=== PATIENT | female | born 1975 | race Caucasian/White ===

== ENCOUNTER 2018-05-28 14:36 | Emergency (ER) | payer OTHER ==
[2018-05-28] MEDS ORDERED: MAG HYDROX/AL HYDROX/SIMETH 30 ML, HYOSCYAMINE ELIXIR 10 ML, CIMETIDINE HCL 300 MG, LID... PO STA ×4 (15:09)
[2018-05-28 15:34] LABS: Basophils % (A) 0 %; Eosinophils # (A) 0.1 k/uL (0-0.7); Eosinophils % (A) 2 %; HCT 38.1 % (34.0-46.0); HGB 12.4 gm/dL (11.4-16.0); Lymphocytes # (A) 1.4 k/uL (1.0-4.8); Lymphocytes % (A) 19 %; MCH 29.6 pg (25.0-35.0); MCHC 32.5 g/dL (31.0-37.0); MCV 91.1 fL (80.0-100.0); Mean Platelet Volume 7.8; Monocytes # (A) 0.2 k/uL (0-1.0); Monocytes % (A) 3 %; Neutrophils # (A) 5.7 k/uL (1.3-7.7); Neutrophils % (A) 75 %; Platelet Count 284 k/uL (150-450); RBC 4.18 m/uL (3.80-5.40); RDW 12.4 % (11.5-15.5); WBC 7.5 k/uL (3.8-10.6)
--- NOTE | 2018-05-28 15:39 | ED ---
General Adult HPI - General Chief complaint: Chest Pain Stated complaint: Chest pain Time Seen by Provider: 05/28/18 14:48 Source: patient, RN notes reviewed, old records reviewed Mode of arrival: wheelchair Limitations: no limitations - History of Present Illness Initial comments: 42-year-old female presents with substernal chest pain. Pain began approximately one half hours prior to arrival. She developed this pain while at rest, initially thought this was indigestion however was not relieved with indigestion medication. Describes the pain as sharp and central chest pain. No dyspnea. No radiating symptoms. No diaphoresis. Patient did have some nausea with no vomiting. Denies any preceding symptoms. No fever or chills. No cough. No history of CAD, patient is a nonsmoker. No history of hypertension or diabetes. - Related Data Previous Rx's Medication Instructions Recorded Omeprazole [PriLOSEC] 20 mg PO AC-BID #60 cap 05/28/18 Allergies Allergy/AdvReac Type Severity Reaction Status Date / Time No Known Allergies Allergy Verified 05/28/18 15:21 Review of Systems ROS Statement: Those systems with pertinent positive or pertinent negative responses have been documented in the HPI. ROS Other: All systems not noted in ROS Statement are negative. Past Medical History Past Medical History: No Reported History History of Any Multi-Drug Resistant Organisms: None Reported Past Surgical History: Cholecystectomy Past Psychological History: No Psychological Hx Reported Smoking Status: Former smoker Past Alcohol Use History: None Reported Past Drug Use History: None Reported General Exam Limitations: no limitations General appearance: alert, in no apparent distress Head exam: Present: atraumatic, normocephalic Eye exam: Present: normal appearance, PERRL, EOMI ENT exam: Present: normal exam Neck exam: Present: normal inspection. Absent: tenderness, meningismus Respiratory exam: Present: normal lung sounds bilaterally. Absent: respiratory distress, wheezes Cardiovascular Exam: Present: regular rate, normal rhythm GI/Abdominal exam: Present: soft. Absent: distended, tenderness, guarding Extremities exam: Present: normal inspection, normal capillary refill. Absent: pedal edema, calf tenderness Neurological exam: Present: alert, oriented X3, CN II-XII intact. Absent: motor sensory deficit Psychiatric exam: Present: normal affect, normal mood Skin exam: Present: warm, dry, intact. Absent: cyanosis, diaphoretic Course Vital Signs 05/28/18 05/28/18 05/28/18 14:39 15:47 17:19 Temperature 98.4 F Pulse Rate 85 92 69 Respiratory 20 17 18 Rate Blood Pressure 145/82 147/73 133/77 O2 Sat by Pulse 98 97 98 Oximetry EKG Findings - EKG Comments: EKG Findings:: EKG: Normal sinus rhythm, rate of 87, IN interval 138, QRS duration 80, QTc 450, there is no ST segment elevation or depression, T waves are upright. Nonischemic EKG. Medical Decision Making - Medical Decision Making 42-year-old female presenting with central chest pain. Pain is nonradiating. There is some nausea. Patient initially thought this was reflux related. EKG obtained in emergency Department is nonischemic. Chest x-ray obtained, negative for acute cardiopulmonary process. CBC is unremarkable. Troponin is negative. D-dimer is mildly elevated 0.55, for this reason CT angiography is obtained, negative for PE or acute process. On reevaluation, patient's symptoms are improved with GI cocktail. She will be discharged with outpatient follow-up. She will return with worsening or changing symptoms. Heart score:1 - Lab Data Result diagrams: 05/28/18 15:00 05/28/18 15:00 Lab Results 05/28/18 05/28/18 05/28/18 Range/Units 15:00 15:00 15:00 WBC 7.5 (3.8-10.6) k/uL RBC 4.18 (3.80-5.40) m/uL Hgb 12.4 (11.4-16.0) gm/dL Hct 38.1 (34.0-46.0) % MCV 91.1 (80.0-100.0) fL MCH 29.6 (25.0-35.0) pg MCHC 32.5 (31.0-37.0) g/dL RDW 12.4 (11.5-15.5) % Plt Count 284 (150-450) k/uL Neutrophils % 75 % Lymphocytes % 19 % Monocytes % 3 % Eosinophils % 2 % Basophils % 0 % Neutrophils # 5.7 (1.3-7.7) k/uL Lymphocytes # 1.4 (1.0-4.8) k/uL Monocytes # 0.2 (0-1.0) k/uL Eosinophils # 0.1 (0-0.7) k/uL Basophils # 0.0 (0-0.2) k/uL PT (9.0-12.0) sec INR (<1.2) APTT (22.0-30.0) sec D-Dimer (<0.60) mg/L FEU Sodium 140 (137-145) mmol/L Potassium 4.2 (3.5-5.1) mmol/L Chloride 106 (98-107) mmol/L Carbon Dioxide 22 (22-30) mmol/L Anion Gap 12 mmol/L BUN 10 (7-17) mg/dL Creatinine 0.62 (0.52-1.04) mg/dL Est GFR (CKD-EPI)AfAm >90 (>60 ml/min/1.73 sqM) Est GFR (CKD-EPI)NonAf >90 (>60 ml/min/1.73 sqM) Glucose 140 H (74-99) mg/dL Calcium 9.0 (8.4-10.2) mg/dL Magnesium 1.9 (1.6-2.3) mg/dL Total Bilirubin 0.6 (0.2-1.3) mg/dL AST 74 H (14-36) U/L ALT 48 (9-52) U/L Alkaline Phosphatase 107 (38-126) U/L Total Creatine Kinase 41 (30-135) U/L CK-MB (CK-2) 0.4 (0.0-2.4) ng/mL CK-MB (CK-2) Rel Index 1.0 Troponin I <0.012 (0.000-0.034) ng/mL Total Protein 7.6 (6.3-8.2) g/dL Albumin 4.2 (3.5-5.0) g/dL Lipase 66 (23-300) U/L 05/28/18 Range/Units 15:00 WBC (3.8-10.6) k/uL RBC (3.80-5.40) m/uL Hgb (11.4-16.0) gm/dL Hct (34.0-46.0) % MCV (80.0-100.0) fL MCH (25.0-35.0) pg MCHC (31.0-37.0) g/dL RDW (11.5-15.5) % Plt Count (150-450) k/uL Neutrophils % % Lymphocytes % % Monocytes % % Eosinophils % % Basophils % % Neutrophils # (1.3-7.7) k/uL Lymphocytes # (1.0-4.8) k/uL Monocytes # (0-1.0) k/uL Eosinophils # (0-0.7) k/uL Basophils # (0-0.2) k/uL PT 9.7 (9.0-12.0) sec INR 1.0 (<1.2) APTT 24.9 (22.0-30.0) sec D-Dimer 0.55 (<0.60) mg/L FEU Sodium (137-145) mmol/L Potassium (3.5-5.1) mmol/L Chloride (98-107) mmol/L Carbon Dioxide (22-30) mmol/L Anion Gap mmol/L BUN (7-17) mg/dL Creatinine (0.52-1.04) mg/dL Est GFR (CKD-EPI)AfAm (>60 ml/min/1.73 sqM) Est GFR (CKD-EPI)NonAf (>60 ml/min/1.73 sqM) Glucose (74-99) mg/dL Calcium (8.4-10.2) mg/dL Magnesium (1.6-2.3) mg/dL Total Bilirubin (0.2-1.3) mg/dL AST (14-36) U/L ALT (9-52) U/L Alkaline Phosphatase (38-126) U/L Total Creatine Kinase (30-135) U/L CK-MB (CK-2) (0.0-2.4) ng/mL CK-MB (CK-2) Rel Index Troponin I (0.000-0.034) ng/mL Total Protein (6.3-8.2) g/dL Albumin (3.5-5.0) g/dL Lipase (23-300) U/L Disposition Clinical Impression: Gastroesophageal reflux disease, Chest pain Disposition: HOME SELF-CARE Condition: Good Instructions: Chest Pain (ED), Gastroesophageal Reflux Disease (ED) Prescriptions: Omeprazole [PriLOSEC] 20 mg PO AC-BID #60 cap Is patient prescribed a controlled substance at d/c from ED?: No Referrals: None,Stated [Primary Care Provider] - 1-2 days Carlie Lopez MD [STAFF PHYSICIAN] - 1-2 days Time of Disposition: 16:52
--- NOTE | 2018-05-28 15:43 | XR ---
EXAMINATION TYPE: XR chest 2V DATE OF EXAM: 05/28/2018 COMPARISON: NONE HISTORY: Chest pain TECHNIQUE: Frontal and lateral views of the chest are obtained. FINDINGS: There is no focal air space opacity, pleural effusion, or pneumothorax seen. The cardiac silhouette size is within normal limits. The osseous structures are intact. IMPRESSION: No acute cardiopulmonary process.
[2018-05-28 15:46] LABS: ALT 48 U/L (9-52); AST 74 U/L (14-36); Albumin 4.2 g/dL (3.5-5.0); Alkaline Phosphatase 107 U/L (38-126); Anion Gap 12 mmol/L; Blood Urea Nitrogen 10 mg/dL (7-17); Carbon Dioxide 22 mmol/L (22-30); Chloride 106 mmol/L (98-107); Glucose 140 mg/dL (74-99); Lipase 66 U/L (23-300); Magnesium 1.9 mg/dL (1.6-2.3); Potassium 4.2 mmol/L (3.5-5.1); Sodium 140 mmol/L (137-145); Total Bilirubin 0.6 mg/dL (0.2-1.3); Total Protein 7.6 g/dL (6.3-8.2)
[2018-05-28 15:55] LABS: Creatine Kinase 41 U/L (30-135)
[2018-05-28 15:56] LABS: D-Dimer 0.55 mg/L FEU (<0.60); Partial Thromboplastin Time 24.9 sec (22.0-30.0); Prothrombin Time 9.7 sec (9.0-12.0)
[2018-05-28 16:08] LABS: Creatine Kinase MB 0.4 ng/mL (0.0-2.4); Troponin I <0.012 ng/mL (0.000-0.034)
--- NOTE | 2018-05-28 17:19 | CT ---
EXAMINATION TYPE: CT angio chest DATE OF EXAM: 05/28/2018 COMPARISON: NONE HISTORY: Mid chest pain today. CT DLP: 482.8 mGycm. Automated Exposure Control for Dose Reduction was Utilized. CONTRAST: CTA scan of the thorax is performed with IV Contrast, patient injected with 61 mL of Isovue 370, pulm onary embolism protocol. MIP Images are created on CT scanner and reviewed. FINDINGS: LUNGS: The lungs are grossly clear, there is no concerning parenchymal mass or nodule identified. T here is no pleural effusion or pneumothorax seen. The tracheobronchial tree is patent. MEDIASTINUM: There is satisfactory enhancement of the pulmonary artery and its branches, there is no CT evidence for pulmonary embolism. There are no greater than 1 cm hilar or mediastinal lymph nodes. No cardiomegaly or pericardial effusion is seen. Probable residual thymic tissue is seen in the hart perior anterior mediastinum. OTHER: Cholecystectomy is noted within the gallbladder fossa. IMPRESSION: 1. No evidence of pulmonary embolism. 2. No focal consolidation, pleural effusion or pneumothorax.
[2018-05-28 17:20] VITALS: BP 133/77; PULSE 69; RESP 18
[2018-05-28 17:34] VITALS: TEMP 98.1
== END 2018-05-28 17:32 | disposition home or self-care (01) ==
LOC: EC 14:36
DX: K21.9 Gastro-esophageal reflux disease without esophagitis (principal); R79.1 Abnormal coagulation profile; Z87.891 Personal history of nicotine dependence; Z90.49 Acquired absence of other specified parts of digestive tract
CPT/HCPCS: 36415; 93005; 85379; 80053; 82550; 82553; 83690; 83735; 84484; 85025; 85610; 85730; 71046; 71275; 99285; Q9967

== ENCOUNTER → 2018-09-29 | Outpatient (CLI) | payer OTHER ==
--- NOTE | 2018-09-29 10:30 | FL ---
EXAMINATION TYPE: FL UGI DATE OF EXAM: 09/29/2018 COMPARISON: CTA chest May 28, 2018 HISTORY: Abdominal pain and stomach ulcer per order. Epigastric pain per patient. Some relief with re flux medication. TECHNIQUE: A double contrast UGI study is performed. Total of 73 seconds of fluoroscopic time was ut ilized during procedure. 39 spot images are saved to PACS. FINDINGS: Doorperson image of the abdomen shows overall nonobstructive bowel gas pattern. Cholecystectomy clips are redemonstrated. The esophagus shows normal motility and emptying into the stomach. No evidence of hiatal hernia or s tricture noted. The stomach shows normal distensibility, peristalsis, and mucosal folds. No evidence of any mass or focal ulcer disease. Several episodes of gastroesophageal reflux into distal one third and one half o f the esophagus were seen during real-time performance of study. The duodenal bulb, sweep, and proximal small bowel loops are unremarkable. IMPRESSION: Confirmation of gastroesophageal reflux. No focal gastric ulcer identified.
== END | disposition home or self-care (01) ==
LOC: RADFLWHC 08:45
PROVIDERS: ATTEND Family Medicine
DX: K21.9 Gastro-esophageal reflux disease without esophagitis (principal)
CPT/HCPCS: 74240

== ENCOUNTER 2018-11-11 01:21 | Emergency (ER) | payer OTHER ==
[2018-11-11] MEDS ORDERED: MAG HYDROX/AL HYDROX/SIMETH 30 ML, HYOSCYAMINE ELIXIR 10 ML, CIMETIDINE HCL 300 MG, LID... PO STA ×4 (01:45)
[2018-11-11] MEDS ORDERED: ASPIRIN 81 MG PO STA (01:45)
[2018-11-11] MEDS ORDERED: MORPHINE SULFATE 4 MG/ML SYRINGE IV STA (01:45)
[2018-11-11] MEDS ORDERED: SODIUM CHLORIDE 0.9% 500 ML 500 ML IV STA (01:45)
--- NOTE | 2018-11-11 01:57 | ED ---
General Adult HPI - General Chief complaint: Chest Pain Stated complaint: chest pain Time Seen by Provider: 11/11/18 01:38 Source: patient, RN notes reviewed Mode of arrival: ambulatory Limitations: no limitations - History of Present Illness Initial comments: 43-year-old female with a past medical history of GERD and cholecystectomy presents to the emergency department for a chief complaint of chest and epigastric pain times 7 hours. Patient states the pain is gradually worsening. She describes the pain as a sharp stabbing pain in the chest and epigastric area. Patient denies any radiating pain to the arms, back, or jaw. She does admit to mild shortness of breath with this pain. Patient states she has not had this type of pain before. He shouldn't states to nausea and vomiting for the past as well Patient denies history of hypertension, hyperlipidemia, smoking. Patient did have an upper GI series 1.5 months ago, no evidence of gastric ulcer but GERD present. Patient has no other complaints at this time including fever, headache, visual changes. - Related Data Previous Rx's Medication Instructions Recorded Omeprazole [PriLOSEC] 20 mg PO AC-BID #60 cap 05/28/18 Allergies Allergy/AdvReac Type Severity Reaction Status Date / Time No Known Allergies Allergy Verified 11/11/18 01:25 Review of Systems ROS Statement: Those systems with pertinent positive or pertinent negative responses have been documented in the HPI. ROS Other: All systems not noted in ROS Statement are negative. Past Medical History Past Medical History: GERD/Reflux History of Any Multi-Drug Resistant Organisms: None Reported Past Surgical History: Cholecystectomy Past Psychological History: No Psychological Hx Reported Smoking Status: Former smoker Past Alcohol Use History: None Reported Past Drug Use History: None Reported General Exam Limitations: no limitations General appearance: alert, in no apparent distress Head exam: Present: atraumatic, normocephalic, normal inspection Eye exam: Present: normal appearance, PERRL, EOMI. Absent: scleral icterus, conjunctival injection, periorbital swelling ENT exam: Present: normal exam, mucous membranes moist Neck exam: Present: normal inspection, full ROM. Absent: tenderness, meningismus, lymphadenopathy Respiratory exam: Present: normal lung sounds bilaterally. Absent: respiratory distress, wheezes, rales, rhonchi, stridor Cardiovascular Exam: Present: regular rate, normal rhythm, normal heart sounds. Absent: systolic murmur, diastolic murmur, rubs, gallop, clicks GI/Abdominal exam: Present: soft, tenderness (Tenderness noted in the epigastric and right upper quadrant areas with guarding present, no rebound present, no lower abdominal tenderness.), normal bowel sounds. Absent: distended, guarding, rebound, rigid Neurological exam: Present: alert, oriented X3, CN II-XII intact Psychiatric exam: Present: normal affect, normal mood Course Vital Signs 11/11/18 11/11/18 11/11/18 01:23 02:04 04:42 Temperature 97.8 F 98.3 F Pulse Rate 86 72 81 Respiratory 20 16 16 Rate Blood Pressure 183/80 155/81 138/76 O2 Sat by Pulse 99 98 97 Oximetry EKG Findings - EKG Comments: EKG Findings:: Normal sinus rhythm, ventricular rate 78, NM interval 140, QRS duration 80, QTc 446, no evidence of ST elevation or depression. Medical Decision Making - Medical Decision Making 43-year-old female presents for epigastric pain sharp in nature 7 hours. Patient states it radiates into her chest. Denies radiating pain into the arms , neck. No cardiac history. Denies hyperlipidemia, hypertension, smoking history. On exam patient is of tenderness noted to the epigastric area with mild guarding. CBC unremarkable. Troponin negative, d-dimer within normal limits. CMP does show transaminitis with an elevated lipase of 519. Total bilirubin 2.7. This is increased from 0.6 8 months ago. Patient does have a history of cholecystectomy 8 years ago. Denies alcoholic drinking acute abdominal series shows a normal chest, nonacute abdomen. Given patient's tenderness on arrival CT was ordered which was negative. Patient given morphine and GI cocktail, stating she feels much better. Patient did have a negative upper GI series done 2 months ago, no ulcer noted. Did discuss these findings in detail with the patient. I did recommend admission at this time for further evaluation with GI. Patient states she cannot stay as her is not home and she needs to take care of her son. Patient states she would rather follow up outpatient at this time. Patient was given referral to Dr. Pierre. She agrees to return if she has worsening symptoms. - Lab Data Result diagrams: 11/11/18 02:09 11/11/18 02:09 Lab Results 11/11/18 11/11/18 11/11/18 Range/Units 02:09 02:09 02:09 WBC 9.7 (3.8-10.6) k/uL RBC 4.31 (3.80-5.40) m/uL Hgb 13.1 (11.4-16.0) gm/dL Hct 40.1 (34.0-46.0) % MCV 93.0 (80.0-100.0) fL MCH 30.4 (25.0-35.0) pg MCHC 32.7 (31.0-37.0) g/dL RDW 12.1 (11.5-15.5) % Plt Count 312 (150-450) k/uL Neutrophils % 86 % Lymphocytes % 10 % Monocytes % 3 % Eosinophils % 1 % Basophils % 0 % Neutrophils # 8.4 H (1.3-7.7) k/uL Lymphocytes # 1.0 (1.0-4.8) k/uL Monocytes # 0.3 (0-1.0) k/uL Eosinophils # 0.1 (0-0.7) k/uL Basophils # 0.0 (0-0.2) k/uL PT 9.9 (9.0-12.0) sec INR 0.9 (<1.2) APTT 24.9 (22.0-30.0) sec D-Dimer 0.56 (<0.60) mg/L FEU Sodium 137 (137-145) mmol/L Potassium 3.9 (3.5-5.1) mmol/L Chloride 106 (98-107) mmol/L Carbon Dioxide 18 L (22-30) mmol/L Anion Gap 13 mmol/L BUN 10 (7-17) mg/dL Creatinine 0.49 L (0.52-1.04) mg/dL Est GFR (CKD-EPI)AfAm >90 (>60 ml/min/1.73 sqM) Est GFR (CKD-EPI)NonAf >90 (>60 ml/min/1.73 sqM) Glucose 137 H (74-99) mg/dL Calcium 9.4 (8.4-10.2) mg/dL Magnesium 2.1 (1.6-2.3) mg/dL Total Bilirubin 2.7 H (0.2-1.3) mg/dL AST 453 H (14-36) U/L ALT 413 H (9-52) U/L Alkaline Phosphatase 353 H (38-126) U/L Total Creatine Kinase (30-135) U/L CK-MB (CK-2) (0.0-2.4) ng/mL CK-MB (CK-2) Rel Index Troponin I (0.000-0.034) ng/mL Total Protein 8.4 H (6.3-8.2) g/dL Albumin 4.5 (3.5-5.0) g/dL Amylase 96 (30-110) U/L Lipase 519 H (23-300) U/L 11/11/18 Range/Units 02:09 WBC (3.8-10.6) k/uL RBC (3.80-5.40) m/uL Hgb (11.4-16.0) gm/dL Hct (34.0-46.0) % MCV (80.0-100.0) fL MCH (25.0-35.0) pg MCHC (31.0-37.0) g/dL RDW (11.5-15.5) % Plt Count (150-450) k/uL Neutrophils % % Lymphocytes % % Monocytes % % Eosinophils % % Basophils % % Neutrophils # (1.3-7.7) k/uL Lymphocytes # (1.0-4.8) k/uL Monocytes # (0-1.0) k/uL Eosinophils # (0-0.7) k/uL Basophils # (0-0.2) k/uL PT (9.0-12.0) sec INR (<1.2) APTT (22.0-30.0) sec D-Dimer (<0.60) mg/L FEU Sodium (137-145) mmol/L Potassium (3.5-5.1) mmol/L Chloride (98-107) mmol/L Carbon Dioxide (22-30) mmol/L Anion Gap mmol/L BUN (7-17) mg/dL Creatinine (0.52-1.04) mg/dL Est GFR (CKD-EPI)AfAm (>60 ml/min/1.73 sqM) Est GFR (CKD-EPI)NonAf (>60 ml/min/1.73 sqM) Glucose (74-99) mg/dL Calcium (8.4-10.2) mg/dL Magnesium (1.6-2.3) mg/dL Total Bilirubin (0.2-1.3) mg/dL AST (14-36) U/L ALT (9-52) U/L Alkaline Phosphatase (38-126) U/L Total Creatine Kinase 80 (30-135) U/L CK-MB (CK-2) 0.3 (0.0-2.4) ng/mL CK-MB (CK-2) Rel Index 0.4 Troponin I <0.012 (0.000-0.034) ng/mL Total Protein (6.3-8.2) g/dL Albumin (3.5-5.0) g/dL Amylase (30-110) U/L Lipase (23-300) U/L Disposition Clinical Impression: Transaminitis, Pancreatitis, Elevated bilirubin Disposition: HOME SELF-CARE Condition: Good Instructions: Pancreatitis (ED) Additional Instructions: Please try a clear liquid diet. Please follow up with Dr. Pierre in 1-2 days. Return to the emergency department if you have any worsening symptoms. Is patient prescribed a controlled substance at d/c from ED?: No Referrals: Marshal Wade MD [Primary Care Provider] - 1-2 days Spencer Pierre MD [STAFF PHYSICIAN] - 1-2 days Time of Disposition: 04:41
[2018-11-11 02:06] VITALS: RESP 16
--- NOTE | 2018-11-11 02:42 | XR ---
EXAMINATION TYPE: XR abdomen acute w cxr DATE OF EXAM: 11/11/2018 COMPARISON: 05/28/2018 chest x-ray HISTORY: Epigastric pain TECHNIQUE: Chest x-ray with supine and upright abdomen FINDINGS: Heart and mediastinum are normal. Lungs are clear of infiltrate. Diaphragm is normal. There are chest leads. There are clips from cholecystectomy. Bowel gas pattern is normal. There is no sign of intestinal obs truction or pneumoperitoneum. Fecal pattern is normal. There is no sign of a mass. There are no patho logic calcifications over the kidneys. IMPRESSION: Normal chest. Nonacute abdomen. Chest is stable compared to old exam.
[2018-11-11 02:45] LABS: Basophils % (A) 0 %; Eosinophils # (A) 0.1 k/uL (0-0.7); Eosinophils % (A) 1 %; HCT 40.1 % (34.0-46.0); HGB 13.1 gm/dL (11.4-16.0); Lymphocytes % (A) 10 %; MCH 30.4 pg (25.0-35.0); MCHC 32.7 g/dL (31.0-37.0); Mean Platelet Volume 7.4; Monocytes # (A) 0.3 k/uL (0-1.0); Monocytes % (A) 3 %; Neutrophils # (A) 8.4 k/uL (1.3-7.7); Neutrophils % (A) 86 %; Platelet Count 312 k/uL (150-450); RBC 4.31 m/uL (3.80-5.40); RDW 12.1 % (11.5-15.5); WBC 9.7 k/uL (3.8-10.6)
[2018-11-11 02:53] LABS: D-Dimer 0.56 mg/L FEU (<0.60); INR 0.9 (<1.2); Partial Thromboplastin Time 24.9 sec (22.0-30.0); Prothrombin Time 9.9 sec (9.0-12.0)
[2018-11-11 03:05] LABS: Creatine Kinase 80 U/L (30-135)
[2018-11-11 03:06] LABS: ALT 413 U/L (9-52); AST 453 U/L (14-36); Albumin 4.5 g/dL (3.5-5.0); Alkaline Phosphatase 353 U/L (38-126); Amylase 96 U/L (30-110); Anion Gap 13 mmol/L; Blood Urea Nitrogen 10 mg/dL (7-17); Calcium 9.4 mg/dL (8.4-10.2); Carbon Dioxide 18 mmol/L (22-30); Chloride 106 mmol/L (98-107); Glucose 137 mg/dL (74-99); Lipase 519 U/L (23-300); Magnesium 2.1 mg/dL (1.6-2.3); Potassium 3.9 mmol/L (3.5-5.1); Sodium 137 mmol/L (137-145); Total Bilirubin 2.7 mg/dL (0.2-1.3); Total Protein 8.4 g/dL (6.3-8.2)
[2018-11-11 03:16] LABS: Creatine Kinase MB 0.3 ng/mL (0.0-2.4); Troponin I <0.012 ng/mL (0.000-0.034)
--- NOTE | 2018-11-11 04:10 | CT ---
EXAMINATION TYPE: CT abdomen pelvis w con DATE OF EXAM: 11/11/2018 COMPARISON: None HISTORY: upper abdominal pain CT DLP: 1186.7 mGycm Automated exposure control for dose reduction was used. TECHNIQUE: Helical acquisition of images was performed from the lung bases through the pelvis. CONTRAST: Performed without Oral Contrast and with IV Contrast, patient injected with 100mL mL of Isovue 300. FINDINGS: Lung bases are clear. There is no pleural effusion. Heart size is normal. There is no pericardial eff usion. There are clips from cholecystectomy. Liver appears normal. Bile ducts are not dilated. Spleen appear s normal. There is no evidence of a pancreatic mass. Stomach appears normal. There is no adrenal mass. Kidneys show satisfactory contrast opacification. There is no hydronephrosi s. There is small umbilical hernia that contains fat. There is no retroperitoneal adenopathy. Ureters are not dilated. Laddered distends smoothly. There is no inguinal hernia. There is no free fluid in the pelvis. There is no evidence of pneumoperitoneum. There is no mesenteric edema or adenopathy. Lumbar spine is intac t. Bony pelvis is intact. Uterus is anteverted. There is no evidence of a pelvic mass. IMPRESSION: NEGATIVE CT SCAN OF THE ABDOMEN AND PELVIS.
[2018-11-11 04:42] VITALS: BP 138/76; PULSE 81; TEMP 98.3
== END 2018-11-11 04:55 | disposition home or self-care (01) ==
LOC: EC 01:21
DX: K85.90 Acute pancreatitis without necrosis or infection, unspecified (principal); R74.0 Nonspecific elevation of levels of transaminase and lactic acid dehydrogenase [LDH]; R79.89 Other specified abnormal findings of blood chemistry; R74.8 Abnormal levels of other serum enzymes; R07.9 Chest pain, unspecified; R06.02 Shortness of breath; K21.9 Gastro-esophageal reflux disease without esophagitis; Z90.49 Acquired absence of other specified parts of digestive tract; Z87.891 Personal history of nicotine dependence
CPT/HCPCS: 99285; 96374; 36415; 85379; 80053; 82150; 82550; 82553; 83690; 83735; 84484; 85025; 85610; 85730; 74022; 74177; J2270; Q9967

== ENCOUNTER 2018-11-13 20:55 | Inpatient (IN) | payer OTHER ==
[2018-11-13] MEDS ORDERED: HYDROmorphone 1 MG/ML 1 ML SYRINGE IVP STA (21:40)
[2018-11-13] MEDS ORDERED: SODIUM CHLORIDE 0.9% 1,000 ML IV ONE (21:40)
[2018-11-13] MEDS ORDERED: ONDANSETRON 4 MG/2 ML VIAL IVP STA (21:40)
--- NOTE | 2018-11-13 21:42 | ED ---
Abdominal Pain HPI - General Chief Complaint: Abdominal Pain Stated Complaint: Abd pain Time Seen by Provider: 11/13/18 21:26 Source: patient Mode of arrival: ambulatory Limitations: no limitations - History of Present Illness Initial Comments: This patient is a 43-year-old woman who presents with right upper quadrant and epigastric pain that started between 6 and 7 PM tonight after she had eaten. Patient describes pain as being constant, sharp, and severe. She states he gets worse with certain movements or if she presses on her abdomen. She has not noted relieving factors. There has also been nausea and vomiting. She had a similar episode and was seen here on Wednesday. She states that they told her something was going on with her pancreas. She has history of cholecystectomy over 5 years ago. Patient denies any chest symptoms. No fever or chills. No changes in urination. No change in bowel movements. Last menstrual period proximally 2 weeks ago and normal. MD Complaint: abdominal pain Onset/Timin -: hour(s) Location: RUQ Radiation: none Migration to: no migration Severity: severe Quality: aching Consistency: constant Improves With: nothing Worsens With: movement, other (Palpation) Associated Symptoms: nausea - Related Data LMP (females 10-50): last week Previous Rx's Medication Instructions Recorded Omeprazole [PriLOSEC] 20 mg PO AC-BID #60 cap 05/28/18 Allergies Allergy/AdvReac Type Severity Reaction Status Date / Time No Known Allergies Allergy Verified 11/13/18 23:28 Review of Systems ROS Statement: Those systems with pertinent positive or pertinent negative responses have been documented in the HPI. ROS Other: All systems not noted in ROS Statement are negative. Constitutional: Denies: fever, chills Respiratory: Denies: cough, dyspnea Cardiovascular: Denies: chest pain, palpitations, edema Gastrointestinal: Reports: abdominal pain, nausea, vomiting. Denies: diarrhea, constipation, hematemesis, melena, hematochezia Genitourinary: Denies: dysuria, hematuria Musculoskeletal: Denies: back pain Skin: Denies: rash Neurological: Denies: headache, weakness, numbness Past Medical History Past Medical History: GERD/Reflux History of Any Multi-Drug Resistant Organisms: None Reported Past Surgical History: Cholecystectomy Past Psychological History: No Psychological Hx Reported Smoking Status: Former smoker Past Alcohol Use History: None Reported Past Drug Use History: None Reported General Exam Limitations: no limitations General appearance: alert, in no apparent distress Head exam: Present: atraumatic, normocephalic Eye exam: Present: normal appearance. Absent: scleral icterus, conjunctival injection ENT exam: Present: normal oropharynx Neck exam: Present: normal inspection, full ROM Respiratory exam: Present: normal lung sounds bilaterally. Absent: respiratory distress, wheezes, rales, rhonchi, stridor Cardiovascular Exam: Present: regular rate, normal rhythm, normal heart sounds. Absent: systolic murmur, diastolic murmur, rubs, gallop GI/Abdominal exam: Present: soft, tenderness (There is mild right upper quadrant and epigastric tenderness without rebound or guarding), normal bowel sounds. Absent: distended, guarding, rebound, rigid, mass, pulsatile mass, hernia Extremities exam: Present: normal inspection, normal capillary refill. Absent: pedal edema, calf tenderness Back exam: Present: normal inspection. Absent: CVA tenderness (R), CVA tenderness (L) Neurological exam: Present: alert Skin exam: Present: warm, dry, intact, normal color. Absent: rash Course Vital Signs 11/13/18 11/13/18 21:05 23:33 Temperature 97.9 F 97.7 F Pulse Rate 69 73 Respiratory 24 16 Rate Blood Pressure 165/77 148/79 O2 Sat by Pulse 98 99 Oximetry Medical Decision Making - Lab Data Result diagrams: 11/13/18 21:25 11/13/18 21:25 Lab Results 11/13/18 11/13/18 11/13/18 Range/Units 21:25 21:25 23:10 WBC 12.2 H (3.8-10.6) k/uL RBC 4.49 (3.80-5.40) m/uL Hgb 13.5 (11.4-16.0) gm/dL Hct 41.3 (34.0-46.0) % MCV 92.0 (80.0-100.0) fL MCH 30.0 (25.0-35.0) pg MCHC 32.6 (31.0-37.0) g/dL RDW 12.3 (11.5-15.5) % Plt Count 352 (150-450) k/uL Neutrophils % 80 % Lymphocytes % 12 % Monocytes % 5 % Eosinophils % 1 % Basophils % 0 % Neutrophils # 9.7 H (1.3-7.7) k/uL Lymphocytes # 1.5 (1.0-4.8) k/uL Monocytes # 0.7 (0-1.0) k/uL Eosinophils # 0.2 (0-0.7) k/uL Basophils # 0.0 (0-0.2) k/uL Sodium 138 (137-145) mmol/L Potassium 4.4 (3.5-5.1) mmol/L Chloride 106 (98-107) mmol/L Carbon Dioxide 22 (22-30) mmol/L Anion Gap 10 mmol/L BUN 10 (7-17) mg/dL Creatinine 0.55 (0.52-1.04) mg/dL Est GFR (CKD-EPI)AfAm >90 (>60 ml/min/1.73 sqM) Est GFR (CKD-EPI)NonAf >90 (>60 ml/min/1.73 sqM) Glucose 108 H (74-99) mg/dL Calcium 9.5 (8.4-10.2) mg/dL Total Bilirubin 1.9 H (0.2-1.3) mg/dL AST 249 H (14-36) U/L ALT 347 H (9-52) U/L Alkaline Phosphatase 374 H (38-126) U/L Total Protein 8.5 H (6.3-8.2) g/dL Albumin 4.4 (3.5-5.0) g/dL Amylase 201 H (30-110) U/L Lipase 1665 H (23-300) U/L Urine Color Yellow Urine Appearance Clear (Clear) Urine pH 6.5 (5.0-8.0) Ur Specific [place] 1.023 (1.001-1.035) Urine Protein Trace H (Negative) Urine Glucose (UA) Negative (Negative) Urine Ketones 2+ H (Negative) Urine Blood Negative (Negative) Urine Nitrite Negative (Negative) Urine Bilirubin 1+ H (Negative) Urine Urobilinogen 12.0 (<2.0) mg/dL Ur Leukocyte Esterase Small H (Negative) Urine RBC 10 H (0-5) /hpf Urine WBC 4 (0-5) /hpf Ur Squamous Epith Cells 1 (0-4) /hpf Urine Bacteria Rare H (None) /hpf Urine Mucus Many H (None) /hpf Urine HCG, Qual (Not Detectd) 11/13/18 Range/Units 23:10 WBC (3.8-10.6) k/uL RBC (3.80-5.40) m/uL Hgb (11.4-16.0) gm/dL Hct (34.0-46.0) % MCV (80.0-100.0) fL MCH (25.0-35.0) pg MCHC (31.0-37.0) g/dL RDW (11.5-15.5) % Plt Count (150-450) k/uL Neutrophils % % Lymphocytes % % Monocytes % % Eosinophils % % Basophils % % Neutrophils # (1.3-7.7) k/uL Lymphocytes # (1.0-4.8) k/uL Monocytes # (0-1.0) k/uL Eosinophils # (0-0.7) k/uL Basophils # (0-0.2) k/uL Sodium (137-145) mmol/L Potassium (3.5-5.1) mmol/L Chloride (98-107) mmol/L Carbon Dioxide (22-30) mmol/L Anion Gap mmol/L BUN (7-17) mg/dL Creatinine (0.52-1.04) mg/dL Est GFR (CKD-EPI)AfAm (>60 ml/min/1.73 sqM) Est GFR (CKD-EPI)NonAf (>60 ml/min/1.73 sqM) Glucose (74-99) mg/dL Calcium (8.4-10.2) mg/dL Total Bilirubin (0.2-1.3) mg/dL AST (14-36) U/L ALT (9-52) U/L Alkaline Phosphatase (38-126) U/L Total Protein (6.3-8.2) g/dL Albumin (3.5-5.0) g/dL Amylase (30-110) U/L Lipase (23-300) U/L Urine Color Urine Appearance (Clear) Urine pH (5.0-8.0) Ur Specific [place] (1.001-1.035) Urine Protein (Negative) Urine Glucose (UA) (Negative) Urine Ketones (Negative) Urine Blood (Negative) Urine Nitrite (Negative) Urine Bilirubin (Negative) Urine Urobilinogen (<2.0) mg/dL Ur Leukocyte Esterase (Negative) Urine RBC (0-5) /hpf Urine WBC (0-5) /hpf Ur Squamous Epith Cells (0-4) /hpf Urine Bacteria (None) /hpf Urine Mucus (None) /hpf Urine HCG, Qual Not Detected (Not Detectd) Disposition Clinical Impression: Pancreatitis, Transaminitis, Elevated bilirubin Disposition: ADMITTED IP TO THIS HOSP Condition: Fair Referrals: Marshal Wade MD [Primary Care Provider] - 1-2 days
[2018-11-13 22:01] LABS: Basophils % (A) 0 %; Eosinophils # (A) 0.2 k/uL (0-0.7); Eosinophils % (A) 1 %; HCT 41.3 % (34.0-46.0); HGB 13.5 gm/dL (11.4-16.0); Lymphocytes # (A) 1.5 k/uL (1.0-4.8); Lymphocytes % (A) 12 %; MCHC 32.6 g/dL (31.0-37.0); Mean Platelet Volume 7.6; Monocytes # (A) 0.7 k/uL (0-1.0); Monocytes % (A) 5 %; Neutrophils # (A) 9.7 k/uL (1.3-7.7); Neutrophils % (A) 80 %; Platelet Count 352 k/uL (150-450); RBC 4.49 m/uL (3.80-5.40); RDW 12.3 % (11.5-15.5); WBC 12.2 k/uL (3.8-10.6)
[2018-11-13 22:17] LABS: Albumin 4.4 g/dL (3.5-5.0); Amylase 201 U/L (30-110); Anion Gap 10 mmol/L; Blood Urea Nitrogen 10 mg/dL (7-17); Calcium 9.5 mg/dL (8.4-10.2); Carbon Dioxide 22 mmol/L (22-30); Chloride 106 mmol/L (98-107); Glucose 108 mg/dL (74-99); Lipase 1665 U/L (23-300); Sodium 138 mmol/L (137-145); Total Bilirubin 1.9 mg/dL (0.2-1.3); Total Protein 8.5 g/dL (6.3-8.2)
[2018-11-13 22:19] LABS: ALT 347 U/L (9-52); AST 249 U/L (14-36); Alkaline Phosphatase 374 U/L (38-126); Potassium 4.4 mmol/L (3.5-5.1)
[2018-11-13 23:29] LABS: Appearance,Urine Clear (Clear); Bacteria,Urine Rare /hpf; Bilirubin,Urine 1+ (Negative); Blood,Urine Negative (Negative); Color,Urine Yellow; Glucose,Urine (UA) Negative (Negative); Ketones,Urine 2+ (Negative); Leukocyte Esterase,Urine Small (Negative); Mucus,Urine Many /hpf; Nitrite,Urine Negative (Negative); PH, Urine 6.5 (5.0-8.0); Protein,Urine Trace (Negative); RBC,Urine 10 /hpf (0-5); Specific Gravity,Urine 1.023 (1.001-1.035); Squamous Epithelial Cell,Urine 1 /hpf (0-4); WBC,Urine 4 /hpf (0-5)
[2018-11-14] MEDS ORDERED: HYDROmorphone 1 MG/ML 1 ML SYRINGE IVP STA (00:20)
[2018-11-14] MEDS ORDERED: NALOXONE 0.4 MG/ML 1 ML VIAL IV PRN (00:38)
[2018-11-14] MEDS ORDERED: ONDANSETRON 4 MG/2 ML VIAL IVP PRN (00:38)
[2018-11-14] MEDS ORDERED: PIPERACILLIN-TAZOBACTAM 3.375 GM in SODIUM CHLORIDE 0.9% 100 ML IVPB STA (00:44)
[2018-11-14] MEDS: SODIUM CHLORIDE 0.9% 1,000 ML IV SCH ×3 (01:04→18:06)
[2018-11-14 01:45] VITALS: BMI 38.4
[2018-11-14] MEDS: HYDROmorphone 1 MG/ML 1 ML SYRINGE IVP PRN ×3 (03:18→18:04)
[2018-11-14] MEDS: PANTOPRAZOLE 40 MG TABLET PO SCH ×2 (08:31→18:07)
[2018-11-14] MEDS: PIPERACILLIN-TAZOBACTAM 3.375 GM in SODIUM CHLORIDE 0.9% 100 ML IVPB SCH ×2 (11:09→18:06)
[2018-11-14 12:23] LABS: Hepatitis A Antibody IgM Non-Reactive (Non-Reactive); Hepatitis B Core IgM Non-Reactive (Non-Reactive)
--- NOTE | 2018-11-14 19:10 | MR ---
EXAMINATION TYPE: MR MRCP DATE OF EXAM: 11/14/2018 COMPARISON: None HISTORY: Upper abdominal pain Standard multiplanar, multisequence MRI departmental protocol Multiplanar, multisequence images of the abdomen were acquired. FINDINGS: There is moderate dilation of the entire biliary tree. Gallbladder appears absent. There is apparent dilation of the cystic duct remnant. The pancreatic duct appears normal. There is no eviden ce of pancreatic mass. I see no filling defect at the distal common bile duct. The spleen appears nor mal. Liver shows no focal defect. There is no evidence of a liver mass. There is no pleural effusion. Kidneys show no hydronephrosis. There is no adrenal mass. There is no evidence of retroperitoneal ad enopathy. IMPRESSION: Dilated biliary tree. No obstructing stone seen. This could relate to a stricture at the distal commo n bile duct. Normal pancreatic duct. No mass identified. The biliary tree is significantly increased in size compared to the recent CT scan of 11/11/2018. This rapid change suggests the possibility of a small obstructing stone in the distal common bile duct that is not demonstrated by this exam.
--- NOTE | 2018-11-14 19:15 | P.CONS ---
History of Present Illness - Reason for Consult Consult date: 11/14/18 Pancreatitis, elevated liver enzymes Requesting physician: Marshal Wade - Chief Complaint Abdominal pain - History of Present Illness The patient is a pleasant 43-year-old female with a medical history significant for GERD and prior cholecystectomy who presented to the hospital with complaints of abdominal pain. The patient reports 2 episodes, one late last week and a second prior to presentation prompting her to come to the emergency department for further evaluation. She describes pain which occurred in the evening on both episodes after eating which was constant, sharp and severe in nature. The pain was located in the epigastric region of her abdomen and worse with movement. The patient reports associated nausea and vomiting with the last episode, productive of nonbloody non-bilious emesis. She denies any change in bowel habits, any constipation, diarrhea, hematochezia or melena. The patient had a cholecystectomy approximately 8 years ago. She does have a known history of GERD for which she takes OTC Prilosec. On presentation she was found to have a total bilirubin of 1.9, alkaline phosphatase 374, AST 249 and ALTs 347. The patient was found to have an elevated lipase of 1665 and an amylase of 201. She denies any recent alcohol use. Review of Systems REVIEW OF SYSTEMS: CONSTITUTIONAL: Denies any fevers, chills, weight change or fatigue. CARDIOVASCULAR: Denies any chest pain, palpitations high or low blood pressures RESPIRATORY: Denies any shortness of breath, hemoptysis or cough. GENITOURINARY: No dysuria or hematuria. MUSCULOSKELETAL: No weakness reported. SKIN: Denies any new rashes or lesions, jaundice or pallor. PSYCHIATRIC: Denies any depression or anxiety. NEUROLOGY: Denies headache, denies any new focal deficits. EARS/NOSE/THROAT: No recent hearing change, congestion, nasal discharge or sore throat. EYES: No pain in eyes, discharge or change in vision. GASTROINTESTINAL: As per HPI. Past Medical History Past Medical History: GERD/Reflux History of Any Multi-Drug Resistant Organisms: None Reported Past Surgical History: Cholecystectomy Past Psychological History: No Psychological Hx Reported Smoking Status: Former smoker Past Alcohol Use History: None Reported Past Drug Use History: None Reported Additional History: Family history: Reviewed with the patient in not pertinent to current medical presentation/admission. Medications and Allergies Home Medications Medication Instructions Recorded Confirmed Type Omeprazole [PriLOSEC] 20 mg PO AC-BID #60 cap 05/28/18 11/13/18 Rx Allergies Allergy/AdvReac Type Severity Reaction Status Date / Time No Known Allergies Allergy Verified 11/13/18 23:28 Physical Exam Vitals: Vital Signs Temp Pulse Pulse Resp BP BP Pulse Ox 11/14/18 11:26 98.0 F 73 16 142/85 98 11/14/18 04:56 97.7 F 72 16 152/81 98 11/14/18 02:01 97.1 F L 62 18 168/86 98 11/14/18 01:06 97.8 F 77 18 143/77 99 11/13/18 23:33 97.7 F 73 16 148/79 99 11/13/18 21:05 97.9 F 69 24 165/77 98 Intake and Output 11/14/18 11/14/18 11/14/18 06:59 14:59 22:59 Intake Total 1425 1500 Output Total 300 Balance 1125 1500 Intake: IV 325 1500 Sodium Chloride 0.9% 1, 325 1500 000 ml @ 125 mls/hr IV . Q8H [facility] Rx#:[id number] Intake, IV Titration 1100 Amount Piperacillin-Tazobactam 3 100 .375 gm In Sodium Chloride 0.9% 100 ml @ 25 mls/hr IVPB ONCE STA Rx# :[id number] Sodium Chloride 0.9% 1, 0 000 ml @ 125 mls/hr IV . Q8H [facility] Rx#:[id number] Sodium Chloride 0.9% 1, 1000 000 ml @ 999 mls/hr IV . Q1H1M [facility] Rx#:[id number] Output: Emesis 300 Other: # Voids 1 1 Weight 95.254 kg Results CBC & Chem 7: 11/13/18 21:25 11/13/18 21:25 Labs: Abnormal Lab Results - Last 24 Hours (Table) 11/13/18 11/13/18 11/13/18 Range/Units 21:25 21:25 23:10 WBC 12.2 H (3.8-10.6) k/uL Neutrophils # 9.7 H (1.3-7.7) k/uL Glucose 108 H (74-99) mg/dL Total Bilirubin 1.9 H (0.2-1.3) mg/dL AST 249 H (14-36) U/L ALT 347 H (9-52) U/L Alkaline Phosphatase 374 H (38-126) U/L Total Protein 8.5 H (6.3-8.2) g/dL Amylase 201 H (30-110) U/L Lipase 1665 H (23-300) U/L Urine Protein Trace H (Negative) Urine Ketones 2+ H (Negative) Urine Bilirubin 1+ H (Negative) Ur Leukocyte Esterase Small H (Negative) Urine RBC 10 H (0-5) /hpf Urine Bacteria Rare H (None) /hpf Urine Mucus Many H (None) /hpf Assessment and Plan (1) Pancreatitis Narrative/Plan: Patient presenting to the hospital with complaints of epigastric pain typical for pancreatitis with associated elevation in lipase. The patient has a known history of cholecystectomy and denies any significant alcohol use. Current Visit: Yes Status: Acute Code(s): K85.90 - ACUTE PANCREATITIS WITHOUT NECROSIS OR INFECTION, UNSP SNOMED Code(s): 46450514 (2) Elevated liver enzymes Narrative/Plan: Unknown etiology, may represent a gallstone which formed the no and the bile duct and has passed, versus choledocholithiasis, versus other etiology. Current Visit: Yes Status: Acute Code(s): R74.8 - ABNORMAL LEVELS OF OTHER SERUM ENZYMES SNOMED Code(s): 869744474 Plan: Supportive care Nothing by mouth Continue pain control Continue fluid hydration We'll repeat liver enzymes in the morning MRCP ordered and pending If MRCP is consistent with choledocholithiasis, or liver enzymes continue to trend up will consider ERCP Acute viral hepatitis panel pending Thank you for allowing us to participate in the care of this patient we will continue to follow
[2018-11-15] MEDS: PIPERACILLIN-TAZOBACTAM 3.375 GM in SODIUM CHLORIDE 0.9% 100 ML IVPB SCH ×3 (00:26→16:19)
[2018-11-15] MEDS: SODIUM CHLORIDE 0.9% 1,000 ML IV SCH ×4 (00:27→22:55)
[2018-11-15] MEDS: HYDROmorphone 1 MG/ML 1 ML SYRINGE IVP PRN (04:30)
[2018-11-15 08:43] LABS: INR 0.9 (<1.2); Prothrombin Time 10.2 sec (9.0-12.0)
[2018-11-15] MEDS: PANTOPRAZOLE 40 MG TABLET PO SCH ×2 (08:44→16:31)
[2018-11-15 08:51] LABS: Albumin 4.1 g/dL (3.5-5.0); Bilirubin, Conjugated 3.4 mg/dL (0.0-0.3); Bilirubin, Delta 1.6 mg/dL (0.0-0.2); Bilirubin,Unconjugated 1.2 mg/dL (0.0-1.1); Total Bilirubin 6.2 mg/dL (0.2-1.3); Total Protein 7.8 g/dL (6.3-8.2)
--- NOTE | 2018-11-15 10:15 | P.PN ---
Subjective Progress Note Date: 11/15/18 Principal diagnosis: Abdominal pain elevated liver enzymes Mild abdominal discomfort nothing severe. Afebrile. MRCP dilated biliary tree no obstructing stones seen. Possible stricture possible small obstructing stone in the CBD. Normal pancreatic duct. No mass identified. Increased LFTs total bilirubin 6.2. AST 224. ALT 369. AP 434. Lipase pending. Hepatitis screen nonreactive. Objective - Vital Signs Vital signs: Vital Signs Temp 98 F 11/15/18 05:00 Pulse 76 11/15/18 05:00 Resp 18 11/15/18 05:00 BP 149/83 11/15/18 05:00 Pulse Ox 96 11/15/18 05:00 Intake & Output 11/14/18 11/15/18 11/15/18 18:59 06:59 18:59 Intake Total 1500 1400 Balance 1500 1400 Intake: IV 1500 1300 Sodium Chloride 0.9% 1, 1500 1300 000 ml @ 125 mls/hr IV . Q8H [facility] Rx#:[id number] Intake, IV Titration 100 Amount Piperacillin-Tazobactam 3 100 .375 gm In Sodium Chloride 0.9% 100 ml @ 25 mls/hr IVPB ONCE STA Rx# :[id number] Other: Voiding Method Toilet # Voids 1 3 - Exam General appearance: The patient is alert, oriented, in no acute distress. Jaundice. HET: Head is normocephalic and atraumatic. Pupils are equal and reactive. Sclerae icterus. Oropharynx is clear without lesions. Neck: Supple without lymphadenopathy. Trachea midline. Heart: S1 S2. Regular rate and rhythm. Lungs: No crackles or wheezes are heard. Abdomen: Soft, mild midepigastric tenderness, nondistended with bowel sounds. No peritoneal signs. No palpable organomegaly or masses. Extremities: Normal skin color and turgor. No cyanosis, rash, ulceration, clubbing, or edema. Radial and pedal pulses are 2/4 bilaterally. Neurological: No focal deficits. Strength and sensation are grossly intact. - Labs CBC & Chem 7: 11/13/18 21:25 11/13/18 21:25 Assessment and Plan (1) Elevated liver enzymes Narrative/Plan: Dilated biliary tree per MRI possible biliary stricture possible small obstructing gallstone. Current Visit: Yes Status: Acute Code(s): R74.8 - ABNORMAL LEVELS OF OTHER SERUM ENZYMES SNOMED Code(s): 098485098 (2) Pancreatitis Current Visit: Yes Status: Acute Code(s): K85.90 - ACUTE PANCREATITIS WITHOUT NECROSIS OR INFECTION, UNSP SNOMED Code(s): 62969979 Plan: 1. ERCP today. Lipase pending. Nothing by mouth except meds. Continue IV antibiotics. CBC CMP lipase in a.m. The community health educator has discussed the risks, benefits and alternative therapies for the above-mentioned procedure and for both sedation/analgesia as well as necessary blood product administration, if indicated, as they pertain to this patient. The patient has indicated understanding and acceptance of the risks and procedures discussed. Assessment and plan a care discussed with Dr. Correa
[2018-11-15] MEDS ORDERED: PROPOFOL 10 MG/ML 20 ML VIAL IV ONE (13:18)
[2018-11-15] MEDS ORDERED: SUCCINYLCHOLINE CHLORIDE 100 MG/5 ML SYR IV ONE (13:18)
[2018-11-15] MEDS ORDERED: LIDOCAINE 1% INJ 10MG/ML (20 ML MDV) ONE (13:18)
[2018-11-15] MEDS ORDERED: fentaNYL (PF) 50 MCG/ML 2 ML AMP ONE (13:18)
[2018-11-15] MEDS ORDERED: MIDAZOLAM 2 MG/2 ML VIAL ONE (13:18)
[2018-11-15] MEDS ORDERED: IV FLUID CONTINUATION 1,000 ML IV ONE (13:21)
[2018-11-15] MEDS ORDERED: INDOMETHACIN 50MG SUPPOSITORY RECTAL ONE (14:00)
[2018-11-15] MEDS ORDERED: IOPAMIDOL-300 50ML BTL MISCELLANE ONE (14:12)
--- NOTE | 2018-11-15 14:50 | HP ---
HISTORY AND PHYSICAL CHIEF COMPLAINT: Abdominal pain for 3 or 4 days. HISTORY OF PRESENT ILLNESS: This is the first known admission for this 43-year-old white female. She started to have some vague abdominal pain which started to get worse and became associated with some nausea and vomiting. In the emergency room, she was found to have markedly elevated liver function studies including AST, ALT, and alk phos. Lipase was also extremely high. She has had a cholecystectomy. She has otherwise been healthy. She has never had a history similar to this and she has never had pancreatitis. She does not drink. She is not jaundiced and she has had no acholic stools or dark urine. REVIEW OF SYSTEMS: She has had no other complaints. She has had no fever, chills, cough. No chest pain, nausea, vomiting, emesis, melena, etc., if not already mentioned. She has had no urinary complaints. She is not diabetic. Past medical history, family history and personal and social histories reveal that she is not allergic to any medication and only takes Prilosec. She has never smoked and she does not drink. PHYSICAL EXAM: Blood pressure 130/80 with a pulse of 98, respirations of 36 and she is afebrile. In general, she appeared to be slightly overweight and somewhat uncomfortable. Skin color is normal and there is no jaundice. Lymph nodes are not enlarged. Head, ears, eyes, nose, mouth, and throat were normal and neck veins not are not distended. Thyroid was not enlarged. Chest is clear. Cardiac exam is normal, sinus rhythm and no murmurs or extra sounds. The abdomen is slightly tender in the right upper quadrant, but there are no definite masses or visceromegaly. Bowel sounds are present. Extremities normal, neurologically she is intact. She is admitted to the hospital with diagnoses. 1. Right upper quadrant pain. 2. Pancreatitis. 3. Elevated liver function studies. PLAN: 1. Bed rest. 2. IV fluids. 3. GI consult for possible ERCP. MMODL / IJN: [id number] /
--- NOTE | 2018-11-15 14:58 | FL ---
EXAMINATION TYPE: FL ERCP biliary duct only DATE OF EXAM: 11/15/2018 CLINICAL HISTORY: CBD stone. TECHNIQUE: Fluoroscopy. COMPARISON: MRCP from yesterday. CT abdomen and pelvis from 4 days ago. FINDINGS: Fluoroscopic guidance was provided during ERCP procedure performed by Dr. Correa. A tota l of 1 minute 9 seconds of fluoroscopic time was utilized during the procedure and 7 spot images are acquired. Images acquired show biliary access with persistent biliary dilatation new or more prominen t from recent CT. Filling defect at the ampulla is noted. Please correlate with procedure note as I w as not present nor performed procedure. IMPRESSION: As Above.
--- NOTE | 2018-11-15 15:20 | PN ---
PROGRESS NOTE DATE OF SERVICE: 11/15/2018 CHIEF COMPLAINT: Elevated liver function studies and pancreatitis. HISTORY OF PRESENT ILLNESS: This lady is about the same. Her numbers are actually getting worse. Lipase has risen as are her LFTs. She MRCP suggested dilated common duct with no definite stone. She is going for the ERCP today. PHYSICAL EXAM: Her chest is clear and cardiac exam is normal. The abdomen is soft, nontender. IMPRESSION: Elevated liver function studies and lipase. PLAN: ERCP today. MMODL / IJN: [id number] /
--- NOTE | 2018-11-15 15:27 | P.PCN ---
Date of Procedure: 11/15/18 Description of Procedure: Brief history: Patient is a pleasant 43 year-old pleasant lady scheduled for an ERCP as part of evaluation of abdominal pain and elevated serum transaminases. The patient is status post cholecystectomy approximately 8 years ago presented to the hospital after second episode of severe epigastric abdominal pain. The patient was found to have elevation in her liver enzymes which trended up today, and evidence of biliary dilation on MRCP. Procedure performed: ERCP with cholangiography, sphincterotomy and balloon sweep. Preoperative diagnoses: Choledocholithiasis. IV sedation per anesthesia: Estimated blood loss: Minimal. Procedure: After informed consent was obtained from the patient and after the risks benefits and complications including bleeding perforation and pancreatitis explained in detail the patient was brought into the endoscopy unit. The patient was placed in prone position and IV conscious sedation was administered by anesthesia under continuous monitoring. The Olympus side-viewing duodenoscope was then inserted into the mouth and esophagus intubated without any difficulty. The scope was gradually advanced into the stomach and duodenum. The major papilla was identified without any difficulty. The ampulla was cannulated with a sphincterotome and a wire passed into the common bile duct. Injection of dye was then performed with cholangiogram significant for a dilated common duct bile duct approximately 13 mm in size. A 10 mm sphincterotomy was then performed. The bile duct was then swept with a large stone removed. The bile duct was swept multiple times to ensure all dye was removed from the biliary tree. Repeat cholangiogram did not show any filling defects suggestive of a retained stone. The pancreatic duct was not cannulated or injected. The patient tolerated the procedure well. Impression: 1. Choledocholithiasis 2. ERCP with sphincterotomy, cholangiogram suggestive of dilated bile duct, and balloon sweep with stone removed from the CBD Recommendations: The findings of this examination were discussed with the patient. Okay for liquid diet. Monitor liver enzymes. Watch for signs or symptoms of post ERCP pancreatitis.
[2018-11-15 16:56] LABS: Hepatitis A Antibody IgM Non-Reactive (Non-Reactive); Hepatitis B Core IgM Non-Reactive (Non-Reactive)
[2018-11-16] MEDS: PIPERACILLIN-TAZOBACTAM 3.375 GM in SODIUM CHLORIDE 0.9% 100 ML IVPB SCH ×2 (01:32→08:30)
[2018-11-16] MEDS: SODIUM CHLORIDE 0.9% 1,000 ML IV SCH ×2 (05:08→11:31)
[2018-11-16 05:23] VITALS: RESP 16
[2018-11-16] MEDS: PANTOPRAZOLE 40 MG TABLET PO SCH ×2 (08:30→17:36)
[2018-11-16 08:47] LABS: Basophils % (A) 0 %; Eosinophils # (A) 0.1 k/uL (0-0.7); Eosinophils % (A) 1 %; HCT 35.9 % (34.0-46.0); HGB 11.5 gm/dL (11.4-16.0); Lymphocytes # (A) 2.1 k/uL (1.0-4.8); Lymphocytes % (A) 19 %; MCH 30.3 pg (25.0-35.0); MCV 94.4 fL (80.0-100.0); Mean Platelet Volume 7.8; Monocytes # (A) 0.5 k/uL (0-1.0); Monocytes % (A) 5 %; Neutrophils # (A) 8.2 k/uL (1.3-7.7); Neutrophils % (A) 74 %; Platelet Count 288 k/uL (150-450); RDW 12.5 % (11.5-15.5)
[2018-11-16 09:12] LABS: ALT 267 U/L (9-52); AST 124 U/L (14-36); Albumin 3.4 g/dL (3.5-5.0); Alkaline Phosphatase 367 U/L (38-126); Anion Gap 9 mmol/L; Bilirubin, Delta 1.3 mg/dL (0.0-0.2); Bilirubin,Unconjugated 1.4 mg/dL (0.0-1.1); Blood Urea Nitrogen 8 mg/dL (7-17); Calcium 8.3 mg/dL (8.4-10.2); Carbon Dioxide 19 mmol/L (22-30); Chloride 113 mmol/L (98-107); Glucose 137 mg/dL (74-99); Lipase 780 U/L (23-300); Potassium 3.4 mmol/L (3.5-5.1); Sodium 141 mmol/L (137-145); Total Bilirubin 2.7 mg/dL (0.2-1.3); Total Protein 6.7 g/dL (6.3-8.2)
[2018-11-16 12:00] VITALS: BP 124/71; PULSE 74; TEMP 98.9
--- NOTE | 2018-11-16 12:58 | P.PN ---
Subjective Progress Note Date: 11/16/18 Principal diagnosis: Abdominal pain elevated liver enzymes Admitted with acute pancreatitis elevated liver enzymes choledocholithiasis. Status post ERCP sphincterotomy. Feels well today. Total bilirubin improved 2.7. Lipase improved 780. Tolerating clear liquids. Afebrile. Objective - Vital Signs Vital signs: Vital Signs Temp 98.9 F 11/16/18 11:59 Pulse 74 11/16/18 11:59 Resp 16 11/16/18 11:59 BP 124/71 11/16/18 11:59 Pulse Ox 98 11/16/18 11:59 Intake & Output 11/15/18 11/16/18 11/16/18 18:59 06:59 18:59 Intake Total 400 3080 Balance 400 3080 Intake: IV 400 1800 Sodium Chloride 0.9% 1, 1800 000 ml @ 150 mls/hr IV . Q6H40M [facility] Rx#:[id number] Intake, IV Titration 200 Amount Piperacillin-Tazobactam 3 200 .375 gm In Sodium Chloride 0.9% 100 ml @ 25 mls/hr IVPB Q8H [facility] Rx#: [id number] Oral 1080 Other: Voiding Method Toilet Toilet Toilet # Voids 1 3 - Exam General appearance: The patient is alert, oriented, in no acute distress. HET: Head is normocephalic and atraumatic. Pupils are equal and reactive. Mild Sclerae icterus. Oropharynx is clear without lesions. Neck: Supple without lymphadenopathy. Trachea midline. Heart: S1 S2. Regular rate and rhythm. Lungs: No crackles or wheezes are heard. Abdomen: Soft, nontender nondistended with bowel sounds. No peritoneal signs. No palpable organomegaly or masses. Extremities: Normal skin color and turgor. No cyanosis, rash, ulceration, clubbing, or edema. Radial and pedal pulses are 2/4 bilaterally. Neurological: No focal deficits. Strength and sensation are grossly intact. - Labs CBC & Chem 7: 11/16/18 08:25 11/16/18 08:25 Labs: Abnormal Lab Results - Last 24 Hours (Table) 11/16/18 11/16/18 Range/Units 08:25 08:25 WBC 11.0 H (3.8-10.6) k/uL Neutrophils # 8.2 H (1.3-7.7) k/uL Potassium 3.4 L (3.5-5.1) mmol/L Chloride 113 H (98-107) mmol/L Carbon Dioxide 19 L (22-30) mmol/L Glucose 137 H (74-99) mg/dL Calcium 8.3 L (8.4-10.2) mg/dL Total Bilirubin 2.7 H (0.2-1.3) mg/dL Unconjugated Bilirubin 1.4 H (0.0-1.1) mg/dL Delta Bilirubin 1.3 H (0.0-0.2) mg/dL AST 124 H (14-36) U/L ALT 267 H (9-52) U/L Alkaline Phosphatase 367 H (38-126) U/L Albumin 3.4 L (3.5-5.0) g/dL Lipase 780 H (23-300) U/L Assessment and Plan (1) Elevated liver enzymes Narrative/Plan: Secondary to choledocholithiasis status post ERCP sphincterotomy with biochemical improvement Current Visit: Yes Status: Acute Code(s): R74.8 - ABNORMAL LEVELS OF OTHER SERUM ENZYMES SNOMED Code(s): 631853324 (2) Pancreatitis Current Visit: Yes Status: Acute Code(s): K85.90 - ACUTE PANCREATITIS WITHOUT NECROSIS OR INFECTION, UNSP SNOMED Code(s): 20219570 Plan: 1. Advance to low-fat diet if tolerated may be discharged tonight. Follow with PCP is advised. Assessment and plan a care discussed with Dr. Correa
--- NOTE | 2018-11-16 14:16 | DS ---
DISCHARGE SUMMARY CHIEF COMPLAINT: Abdominal pain and pancreatitis. HISTORY OF PRESENT ILLNESS AND PHYSICAL EXAM: Details of this lady's history and physical can be found in the initial workup. LABORATORY STUDIES: While she was in a hospital she had laboratory studies, details of which can be found in the laboratory section of her chart. COURSE IN HOSPITAL: After admission she was placed on bedrest, started on intravenous fluids and started on workup for her pancreatitis. Liver function studies are also elevated. Studies did not suggest an impacted common duct stone, but the common bile duct was dilated. She was taken for an ERCP where she was found to have a stone at the ampulla of Vater and sphincterotomy was performed and stone removed. It was felt that she could go home next day. She will follow up in the office. She will go home on usual activity, diet, medication. FINAL DIAGNOSES: 1. Acute pancreatitis. 2. Impacted common duct stone. 3. Elevated liver function studies. OPERATIONS: ERCP, sphincterotomy of the ampulla Vater and stone removal. CONSULTATIONS: Gastroenterology. She is improved. MMODL / IJN: [id number] /
--- NOTE | 2018-11-17 20:16 | CDI ---
Documentation Clarification Form Date: 11/17/18 From: Carlie Roland Phone: If you have a question regarding this query, please contact Daphne Payne at [phone] Admit Date: 11/14/2018 12:38:00 AM Patient Name: Liliana Gomez Visit Number: [id number] Discharge Date: 11/16/2018 6:55:00 PM ATTENTION: The Clinical Documentation Specialists (CDI) and [facility] Coding Staff appreciate your assistance in clarifying documentation. Please respond to the clarification below the line at the bottom and electronically sign. The CDI & [facility] Coding staff will review the response and follow-up if needed. Please note: Queries are made part of the Legal Health Record. If you have any questions, please contact the author of this message via ITS. Dr. Marshal Wade Pancreatitis is documented throughout the record. Patient history/risk factors: Patient has a history of GERD and cholecystecomy. Clinical Indicators: Abdominal pain, nausea, vomiting, transaminitis and elevated bilirubin. Radiology: MRCP: Dilated biliary tree. no obstructing stone seen. This could related to a stricture at the distal common bile duct. Normal pancreatic duct. No mass identified. The biliary tree is significantly increase in size compared to the recent CT scan of 11/11/2018. This rapid change suggests the possibility of a small obstructing stone in the distal common bile duct that is not demonstrated by this exam. Labs: ALT 347, AST 249, Total bilirubin 1.9 Vital Signs: T. 97.9, P. 69, R. 24, Bp 165/77. Treatment: ERCP with sphincterotomy, cholangiogram, balloon sweep and stone removal from the CBD. In your professional opinion, can the etiology of the pancreatitis be further specified as one of the following, if known? Etiology Biliary Gallstone Idiopathic Other, please specify Unable to determine MTDD
--- NOTE | 2018-12-03 18:28 | MISC ---
MISCELLANOUS REPORT Gallstone pancreatitis. MMODL / IJN: [id number] /
== END 2018-11-16 18:55 | disposition home or self-care (01) | DRG 444 ==
LOC: EC 20:55 → 3NMEDONC 11-14 00:38
PROVIDERS: ADMIT Family Medicine; ATTEND Family Medicine
PROC: 0FC98ZZ Extirpation of Matter from Common Bile Duct, Via Natural or Artificial Opening Endoscopic (ICD-10-PCS; principal; 2018-11-14)
PROC: BF101ZZ Fluoroscopy of Bile Ducts using Low Osmolar Contrast (ICD-10-PCS; 2018-11-15 12:00)
DX: K80.51 Calculus of bile duct without cholangitis or cholecystitis with obstruction (principal); K85.10 Biliary acute pancreatitis without necrosis or infection; K21.9 Gastro-esophageal reflux disease without esophagitis; Z87.891 Personal history of nicotine dependence; Z90.49 Acquired absence of other specified parts of digestive tract
CPT/HCPCS: 36415; 43262; 43264; 74181; 74328; 80053; 80074; 80076; 81001; 81025; 82150; 82248; 83690; 85025; 85610; 96361; 96374; 96375; 99284

== ENCOUNTER → 2021-01-20 | Outpatient (CLI) | payer OTHER | END | disposition home or self-care (01) | LOC: LABWHC1 17:03 | PROVIDERS: ATTEND Family Medicine | DX: J02.9 Acute pharyngitis, unspecified (principal); R05 Cough | CPT/HCPCS: U0003; C9803 ==